=== PATIENT | female | born 1965 | race Caucasian/White ===

== ENCOUNTER 2018-08-03 09:20 | Emergency (ER) | payer OTHER ==
[~2018-08-03] VITALS: Ht 170.2 cm; Wt 81.7 kg
[~2018-08-03 09:20] MED LIST: AMLODIPINE BESYL5 M1 PO; AMOXICILLIN875 MG PO; ATIVAN0.5 MG PO; BACTRIM DS TAB1 EACH PO; CIPROFLOXIN HC2.5 ML OP; FLEXERIL PO; HYDROCODONE-AP1 EAC6 PO; IBUPROFEN 400400 M1 PO; MEDROLDOSEPACK PO; NORCO 5-325 TA1 EACH PO; NORVASC5 MG PO; PERCOCET 5-3251 EACH PO; TESSALON PERLE100 MG PO; TYLENOL325 MG PO; VICODIN; ZPAK PO
[2018-08-03] MEDS ORDERED: ALBENZA200 MG PO (10:01)
[2018-08-03] MEDS ORDERED: PREDNISONE 20 M20 M1 PO (10:01)
[2018-08-03] MEDS ORDERED: NORVASC5 MG PO (10:01)
== END 2018-08-03 11:00 | disposition home or self-care (01) ==
LOC: ER 09:20
DX: L29.9 Pruritus, unspecified (principal)